=== PATIENT | female | born 1985 | race Caucasian/White ===

== ENCOUNTER 2017-04-18 17:49 | Outpatient (CLI) | payer MEDICAID ==
[2017-04-18 18:44] LABS: ABSOLUTE BASOPHILS # (AUTO) 0.1 10^3/uL (0.0-0.2); ABSOLUTE EOSINOPHILS # (AUTO) 0.2 10^3/uL (0.0-0.6); ABSOLUTE LYMPHOCYTES (AUTO) 2.4 10^3/uL (0.5-4.7); ABSOLUTE MONOCYTES (AUTO) 0.4 10^3/uL (0.1-1.4); ABSOLUTE NEUT (AUTO) 7.9 10^3/uL (1.7-8.2); BASOPHILS % (AUTO) 0.6 % (0-2); EOSINOPHILS % (AUTO) 2.1 % (0-6); HEMATOCRIT 28.9 % (36.0-47.0); HEMOGLOBIN 9.5 g/dL (12.0-15.5); HGB HCT DIFFERENCE -0.4; LYMPHOCYTES % (AUTO) 21.4 % (13-45); MEAN CORPUSCULAR HEMOGLOBIN 26.8 pg (27.0-33.4); MEAN CORPUSCULAR HGB CONC 32.9 g/dL (32.0-36.0); MEAN CORPUSCULAR VOLUME 81 fl (80-97); MONOCYTES % (AUTO) 3.9 % (3-13); RED BLOOD COUNT 3.55 10^6/uL (3.72-5.28); RED CELL DISTRIBUTION WIDTH 15.7 % (11.5-14.0)
[2017-04-18 19:40] LABS: ADD HIVPANEL? NO; HIV (1 AND 2) ANTIBODY NEGATIVE (NEGATIVE)
[2017-04-19 10:50] LABS: RAPID PLASMA REAGIN REACTIVE 1:2 (NONREACTIVE)
[2017-04-21 08:40] LABS: HEPATITIS C VIRUS AB <0.1 s/co ratio (0.0-0.9)
[2017-05-03 09:25] LABS: RPR SEND OUT NONREACTIVE (NONREACTIVE)
== END 2017-04-18 18:49 | disposition home or self-care (01) ==
LOC: LC 17:49
PROVIDERS: ATTEND Obstetrics & Gynecology
PROC: 4A1HXCZ Monitoring of Products of Conception, Cardiac Rate, External Approach (ICD-10-PCS; principal; 2017-04-18)
DX: O09.33 Supervision of pregnancy with insufficient antenatal care, third trimester (principal); Z3A.33 33 weeks gestation of pregnancy
CPT/HCPCS: 36415; 59025; 85025; 86592; 86701; 86762; 86803; 86804; 86850; 86900; 86901; 87340

== ENCOUNTER 2017-04-29 12:29 | Outpatient (CLI) | payer MEDICAID ==
[2017-04-29] MEDS ORDERED: RINGERS SOLUTION,LACTATED 1,000 ML IV PRN (12:46)
[2017-04-29] MEDS ORDERED: RINGERS SOLUTION,LACTATED 1,000 ML IV ONE (12:46)
[2017-04-29 13:14] LABS: APPEARANCE,URINE CLEAR; BILIRUBIN,URINE NEGATIVE (NEGATIVE); GLUCOSE, URINE NEGATIVE (NEGATIVE); KETONES,URINE NEGATIVE (NEGATIVE); LEUKOCYTE ESTERASE,URINE NEGATIVE (NEGATIVE); NITRITE,URINE NEGATIVE (NEGATIVE); PROTEIN,URINE NEGATIVE (NEGATIVE); URINE SPECIFIC GRAVITY 1.001; UROBILINOGEN,URINE NEGATIVE mg/dL (<2.0)
[2017-04-29 13:32] LABS: URINE BARBITURATES SCREEN NEGATIVE; URINE METHADONE SCREEN NEGATIVE; URINE OPIATES LOW NEGATIVE; URINE PHENCYCLIDINE SCREEN NEGATIVE
--- NOTE | 2017-04-29 18:47 | Non Stress Test Report ---
Non Stress Test Datetime Report Generated by CPN: 04/29/2017 18:47 DEMOGRAPHIC EGA NST: 33.3 INDICATION Indication for Study: Ordered by Provider Indication for Study (NST) Other: No care MONITORING Monitor Explained: Monitor Explained; Test Explained; Patient Verbalized Understanding Time on Monitor: 04/18/2017 18:17 Time off Monitor: 04/18/2017 18:43 NST Duration: 26 NST INTERVENTIONS NST Interventions: PO Hydration Physician Notified NST: Dr. Adam BABY A: [id number] BABY A Movement : Present Contraction Frequency : irr FHR Baseline : 125 Accelerations : 15X15 Decelerations : None Variability : Moderate 6-25bpm NST Review: Meets Criteria for Reactive NST NST Review and Verified By : Swati Camp RNC NST Results: Reactive NST REPORT Report Trigger: Send Report
--- NOTE | 2017-04-29 18:52 | RADIOLOGY REPORT (SQ) ---
EXAM DESCRIPTION: U/S OB LIMITED COMPLETED DATE/TIME: 04/29/2017 6:31 pm REASON FOR STUDY: REPEAT OLY, LOW FLUID AT OB OFFICE COMPARISON: None. TECHNIQUE: Limited transabdominal grayscale ultrasound for evaluation of specific requested obstetri efren parameters. LIMITATIONS: None. FINDINGS: CERVICAL LENGTH: 4.1 cm. Closed. OLY: 7.4 cm. FHR: 149 beats per minute. PRESENTATION: Cephalic. PLACENTA: Fundal. OTHER: No other significant findings. IMPRESSION: LIMITED OBSTETRICAL ULTRASOUND WITH MEASURED PARAMETERS DELINEATED ABOVE. Trimester of : Third trimester - 28 weeks to delivery. TECHNICAL DOCUMENTATION: JOB ID: [id number] [employer]- All Rights Reserved
== END 2017-04-29 18:50 | disposition home or self-care (01) ==
LOC: LC 12:29
PROVIDERS: ATTEND Obstetrics & Gynecology
DX: O36.8130 Decreased fetal movements, third trimester, not applicable or unspecified (principal); Z3A.35 35 weeks gestation of pregnancy
CPT/HCPCS: 76815; 80307; 81001

== ENCOUNTER 2017-05-03 16:57 | Outpatient (CLI) | payer MEDICAID ==
--- NOTE | 2017-05-03 18:06 | Non Stress Test Report ---
Non Stress Test Datetime Report Generated by CPN: 05/03/2017 18:06 DEMOGRAPHIC EGA NST: 35.4 INDICATION Indication for Study: Ordered by Provider VITAL SIGNS Temperature - NST: 98.0 Pulse - NST: 65 RESP - NST: 16 NBPSYS NST: 116 NBPDIA NST: 66 MONITORING Monitor Explained: Monitor Explained; Test Explained; Patient Verbalized Understanding Time on Monitor: 05/03/2017 17:08 Time off Monitor: 05/03/2017 17:42 NST Duration: 34 NST INTERVENTIONS NST Interventions: PO Hydration Physician Notified NST: Dr. Cedeno BABY A: [id number] BABY A Movement : Present Contraction Frequency : Irregular irritability FHR Baseline : 135 Accelerations : 15X15 Decelerations : None Variability : Moderate 6-25bpm NST Review: Meets Criteria for Reactive NST NST Review and Verified By : D Bellavance RNC NST Results: Reactive NST COMMENTS NST Comments: D/c order received, kickcount carenotes given to patient, patient had no questions at this time. NST REPORT Report Trigger: Send Report
== END 2017-05-03 17:45 | disposition home or self-care (01) ==
LOC: LC 16:57
PROVIDERS: ATTEND Obstetrics & Gynecology
PROC: 4A1HXCZ Monitoring of Products of Conception, Cardiac Rate, External Approach (ICD-10-PCS; principal; 2017-05-03)
DX: O47.03 False labor before 37 completed weeks of gestation, third trimester (principal); Z3A.35 35 weeks gestation of pregnancy
CPT/HCPCS: 59025

== ENCOUNTER 2017-05-09 14:49 | Inpatient (IN) | payer MEDICAID ==
[2017-05-09] MEDS ORDERED: MISOPROSTOL 0.2 MG TABLET ONE (15:04)
[2017-05-09] MEDS ORDERED: LIDOCAINE 1% INJ-PF (10 MG/ML) 30 ML SDV ONE (15:04)
[2017-05-09] MEDS ORDERED: OXYTOCIN 10 UNIT/ML VIAL ONE (15:04)
[2017-05-09] MEDS ORDERED: OXYTOCIN/NORMAL SALINE 1,000 ML IV PRN (15:34)
[2017-05-09] MEDS ORDERED: DIPH/PERTUSS(ACELL)/TETANUS VAC/PF 0.5 ML SYR (>=10YO) IM PRN (15:34)
[2017-05-09] MEDS ORDERED: BENZOCAINE/MENTHOL AEROSOL SPRAY 56 ML TOP PRN (15:34)
[2017-05-09] MEDS ORDERED: DIBUCAINE 1% OINTMENT 28 GM TP PRN (15:34)
[2017-05-09] MEDS ORDERED: MEASLES,MUMPS&RUBELLA VACC/PF 0.5 ML VIAL SUBCUT PRN (15:34)
[2017-05-09] MEDS ORDERED: ZOLPIDEM TARTRATE 5 MG TABLET PO PRN (15:34)
[2017-05-09] MEDS ORDERED: ACETAMINOPHEN WITH CODEINE #3 TABLET PO PRN (15:34)
[2017-05-09 16:00] LABS: HEMOGLOBIN 11.1 g/dL (12.0-15.5); HGB HCT DIFFERENCE -0.7; MEAN CORPUSCULAR HEMOGLOBIN 27.3 pg (27.0-33.4); MEAN CORPUSCULAR HGB CONC 32.5 g/dL (32.0-36.0); MEAN CORPUSCULAR VOLUME 84 fl (80-97); RED BLOOD COUNT 4.06 10^6/uL (3.72-5.28); RED CELL DISTRIBUTION WIDTH 16.9 % (11.5-14.0); WHITE BLOOD COUNT 12.8 10^3/uL (4.0-10.5)
[2017-05-09 17:05] LABS: APPEARANCE,URINE CLOUDY; BILIRUBIN,URINE NEGATIVE (NEGATIVE); GLUCOSE, URINE NEGATIVE (NEGATIVE); KETONES,URINE NEGATIVE (NEGATIVE); LEUKOCYTE ESTERASE,URINE TRACE (NEGATIVE); NITRITE,URINE NEGATIVE (NEGATIVE); PROTEIN,URINE 100 mg/dL (NEGATIVE); URINE SPECIFIC GRAVITY 1.011; UROBILINOGEN,URINE NEGATIVE mg/dL (<2.0)
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
[2017-05-09 17:31] LABS: URINE BARBITURATES SCREEN NEGATIVE; URINE METHADONE SCREEN NEGATIVE; URINE OPIATES LOW NEGATIVE; URINE PHENCYCLIDINE SCREEN NEGATIVE
[2017-05-09] MEDS: FERROUS SULFATE 325 MG TABLET PO SCH (18:16)
[2017-05-09] MEDS: DOCUSATE SODIUM 100 MG CAPSULE PO SCH (18:16)
[2017-05-09] MEDS: IBUPROFEN 800 MG TABLET PO SCH (21:52)
[2017-05-10] MEDS: IBUPROFEN 800 MG TABLET PO SCH ×3 (05:21→21:37)
[2017-05-10] MEDS: ENOXAPARIN SODIUM INJ 40 MG/0.4 ML DISP.SYRIN SUBCUT SCH ×2 (05:21→18:23)
[2017-05-10 07:33] LABS: HEMATOCRIT 34.2 % (36.0-47.0); HEMOGLOBIN 11.3 g/dL (12.0-15.5); HGB HCT DIFFERENCE -0.3; MEAN CORPUSCULAR HEMOGLOBIN 27.6 pg (27.0-33.4); MEAN CORPUSCULAR HGB CONC 33.1 g/dL (32.0-36.0); MEAN CORPUSCULAR VOLUME 83 fl (80-97); RED CELL DISTRIBUTION WIDTH 16.9 % (11.5-14.0); WHITE BLOOD COUNT 14.2 10^3/uL (4.0-10.5)
[2017-05-10 10:28] LABS: RAPID PLASMA REAGIN REACTIVE 1:4 (NONREACTIVE)
--- NOTE | 2017-05-10 10:44 | Delivery Summary ---
Del Sum A-C Datetime Report Generated by CPN: 05/10/2017 10:44 DELIVERY PERSONNEL DELIVERY PERSONNEL: [phone] DELIVERY PERSONNEL: [phone] DELIVERY PERSONNEL: [phone] Delivery Doctor:: Joan Wei CNM Labor and Delivery Nurse:: Eryn Washington RNelevator attendant Nurse:: MAYCO Joseph Master Hearth Technician/CLINICAL RESEARCH ADMINISTRATOR: Jolie Kothari CLINICAL RESEARCH ADMINISTRATOR II MATERNAL INFORMATION Delivery Anesthesia: None Medications After Delivery: Pitocin 10 Units IM Meds After Delivery Comment: Pitocin 20 Units IM R thigh Estimated Blood Loss (ml): 200 Maternal Complications: None Provider Comments: Pt AROM on on the way up to L _ D, Precip. delivery of viable female , head, shoulders, and body delivered without difficulty. Infant with spontaneous cry and respirations to maternal abdomen. Cord clamed X2, cut free after 2 minute delay. Spontaneous delivery of placenta via dixon mechanism, appears intact, very small to pathology. Vagina and perineum inspected, no lacerations noted, good hemostasis to with external fundal massage, 20 units IM pitocin given. Mother and in stable condition. LABOR SUMMARY EDC: 06/03/2017 00:00 No. Babies in Womb: 1 Attempted: No Labor Anesthesia: None LABOR INFORMATION Reason for Induction: Not Applicable Onset of Labor: 05/09/2017 10:00 Complete Dilatation: 05/09/2017 15:00 Oxytocin: N/A Group B Beta Strep: unknown Steroids Given: None Reason Steroids Not Administered: Not Applicable MEMBRANES Membranes Rupture Method: Spontaneous Rupture of Membranes: 05/09/2017 14:49 Length of Rupture (hr): 0.23 Amniotic Fluid Color: Clear Amniotic Fluid Amount: Scant STAGES OF LABOR Stage 1 hr: 5 Stage 1 min: 0 Stage 2 hr: 0 Stage 2 min: 3 Stage 3 hr: 0 Stage 3 min: 6 Total Time in Labor hr: 5 Total Time in Labor min: 9 VAGINAL DELIVERY Episiotomy: None Laceration Extension: N/A Laceration Type: None Laceration Repair: Not Applicable Laceration Repair Note: n/a Sponge Count Correct: N/A Sharps Count Correct: N/A BABY A INFORMATION Infant Delivery Date/Time: 05/09/2017 15:03 Method of Delivery: Vaginal Born in Route : No : N/A Forceps: N/A Vacuum Extraction: N/A Shoulder Dystocia : No PRESENTATION/POSITION BABY A Presentation: Cephalic Cephalic Presentation: Vertex Vertex Position: Left Occipital Anterior Breech Presentation: N/A PLACENTA INFORMATION BABY A Placenta Delivery Time : 05/09/2017 15:09 Placenta Method of Delivery: Spontaneous Placenta Status: Delivered SCORES BABY A Heart Rate 1 min: >100 bpm Resp Effort 1 min: Good Cry Reflex Irritability 1 min: Cough or Sneeze or Pulls Away Muscle Tone 1 min: Active Motion Color 1 min: Body [place], Extremities Blue Resuscitation Effort 1 min: Tactile Stimulation SCORE 1 MIN: 9 Heart Rate 5 min: >100 bpm Resp Effort 5 min: Good Cry Reflex Irritability 5 min: Cough or Sneeze or Pulls Away Muscle Tone 5 min: Active Motion Color 5 min: Body [place], Extremities Blue Resuscitation Effort 5 min: N/A SCORE 5 MIN: 9 Resuscitation Effort 10 min: N/A INFORMATION BABY A Gestational Age at Delivery: 36.3 Gestational Status: Late - 34- 36.6 Weeks Infant Outcome : Liveborn Infant Condition : Stable Infant Sex: Female IDENTIFICATION BABY A Verification Date/Time: 05/09/2017 15:29 ID Band Number: [id number] Mother's Name Verified: Yes Infant RN Verifying : K Felix RNC/ R Vitaliy RN WEIGHT/LENGTH BABY A Birthweight (gm): 2225 Weight (lb): 4 Weight (oz): 14 Length (in): 18.50 Infant Length (cm): 46.99 CORD INFORMATION BABY A No. Cord Vessels: 3 Nuchal Cord : N/A Cord Blood Taken: Yes-For Eval (Mom's Blood Type - or O+) Suction: Mouth; Nose ASSESSMENT BABY A Complications: None Physical Findings at Delivery: Within Normal Limits Skin to Skin: Yes Supervisor Carpenters/ALS Called : No Infant Care By: D Bellavance RNC Transferred To: Remains with Mother BABY B INFORMATION : N/A SIGNATURES Assignment: Jaquelin cShilling MD Signature: with User ID: Sean : with User ID: Sean
--- NOTE | 2017-05-10 11:41 | PDOC PROGRESS REPORT ---
Subjective-OB Subjective: Post Delivery Day:1 31 year old G5 now P5 L6 s/p ppd1. Ambulating without difficulty. Denies any needs at this time Physical Exam (OB) Vital Signs: Temp Pulse Resp BP Pulse Ox 97.8 F 71 15 110/71 99 05/10/17 07:59 05/10/17 07:59 05/10/17 07:59 05/10/17 07:59 05/10/17 07:59 Intake & Output 05/09/17 05/10/17 05/11/17 06:59 06:59 06:59 Weight 55.3 kg - General General Appearance: Appears well In distress: None - PIH/Pre-Eclampsia Clonus: Negative Headache: Absent Epigastric Pain: No Visual Changes: No - Episiotomy/Laceration Site Condition: N/A - Lochia Lochia Amount: Small 10-25 ml Lochia Color: Rubra/Red - Abdomen Description: Soft, Flat Hernia Present: No Fundal Description: Firm Fundal Height: u/u - u/2 - Respiratory Respiratory Status: No respiratory distress - Extremities Upper extremity: Normal inspection Lower extremities: Normal inspection - Neurological Cognition: Normal Orientation: AAOx4 - Psychological Associated symptoms: Normal affect, Normal mood Objective-Diagnostic Laboratory: 05/10/17 07:05 05/09/17 05/09/17 05/09/17 15:44 15:44 16:20 WBC 12.8 H RBC 4.06 Hgb 11.1 L Hct 34.0 L MCV 84 MCH 27.3 MCHC 32.5 RDW 16.9 H Plt Count 260 Urine Color RED Urine Appearance CLOUDY Urine pH 7.0 Ur Specific [place] 1.011 Urine Protein 100 H Urine Glucose (UA) NEGATIVE Urine Ketones NEGATIVE Urine Blood LARGE H Urine Nitrite NEGATIVE Ur Leukocyte Esterase TRACE H Urine RBC (Auto) >182 Blood Type O NEGATIVE Antibody Screen POSITIVE 05/10/17 05/10/17 07:05 07:05 WBC 14.2 H RBC 4.10 Hgb 11.3 L Hct 34.2 L MCV 83 MCH 27.6 MCHC 33.1 RDW 16.9 H Plt Count 287 Urine Color Urine Appearance Urine pH Ur Specific [place] Urine Protein Urine Glucose (UA) Urine Ketones Urine Blood Urine Nitrite Ur Leukocyte Esterase Urine RBC (Auto) Blood Type O NEGATIVE Antibody Screen Assessment and Plan(PN) - Assessment and Plan (1) Positive RPR test Is this a current diagnosis for this admission?: YesPlan: pending confirmation (2) complicated by Suboxone maintenance, antepartum Qualifiers: Trimester: third trimester Qualified Code(s): O99.323 - Drug use complicating , third trimester; F11.20 - Opioid dependence, uncomplicated Is this a current diagnosis for this admission?: YesPlan: continue stay (3) Delivery normal Is this a current diagnosis for this admission?: YesPlan: continue stay (4) History of deep venous thrombosis or pulmonary embolus Is this a current diagnosis for this admission?: YesPlan: re-started lovenox this am continue therapy 40mg daily as previously discussed - Time Spent with Patient Time with patient: 15-25 minutes Smoking Education Provided: Over 3 minutes Medications reviewed and adjusted accordingly: Yes - Disposition Anticipated Discharge: Home Within: within 24 hours
[2017-05-10] MEDS: PRENATAL VITAMIN W-O CA NO5/FE FUMARATE/FA CAPSULE PO SCH (11:55)
[2017-05-10] MEDS: SENNOSIDES/DOCUSATE 8.6-50 MG 1 EACH TABLET PO SCH (11:55)
[2017-05-10] MEDS: DOCUSATE SODIUM 100 MG CAPSULE PO SCH ×2 (11:56→18:25)
[2017-05-10] MEDS: FERROUS SULFATE 325 MG TABLET PO SCH ×2 (11:56→18:25)
[2017-05-10] MEDS: ACETAMINOPHEN WITH CODEINE #3 TABLET PO PRN ×2 (12:26→19:43)
[2017-05-11] MEDS: ENOXAPARIN SODIUM INJ 40 MG/0.4 ML DISP.SYRIN SUBCUT SCH (05:51)
[2017-05-11] MEDS: IBUPROFEN 800 MG TABLET PO SCH ×2 (05:53→13:55)
[2017-05-11 08:31] VITALS: BP 121/71
[2017-05-11] MEDS: DOCUSATE SODIUM 100 MG CAPSULE PO SCH (09:25)
[2017-05-11] MEDS: SENNOSIDES/DOCUSATE 8.6-50 MG 1 EACH TABLET PO SCH (09:25)
[2017-05-11] MEDS: PRENATAL VITAMIN W-O CA NO5/FE FUMARATE/FA CAPSULE PO SCH (09:25)
[2017-05-11] MEDS: FERROUS SULFATE 325 MG TABLET PO SCH (09:26)
[2017-05-11] MEDS ORDERED: METHYLERGONOVINE MALEATE 0.2 MG TABLET ONE (11:17)
--- NOTE | 2017-05-11 11:20 | PDOC DISCHARGE SUMMARY ---
Final Diagnosis Discharge Date: 05/11/17 - Final Diagnosis (1) Delivery normal Is this a current diagnosis for this admission?: Yes (2) History of deep venous thrombosis or pulmonary embolus Is this a current diagnosis for this admission?: Yes (3) Positive RPR test Is this a current diagnosis for this admission?: Yes (4) complicated by Suboxone maintenance, antepartum Is this a current diagnosis for this admission?: Yes Discharge Data - Discharge Medication Home Medications: Buprenorphine HCl [Subutex 8 mg Sublingual Tablet] 4 mg PO BID 05/09/17 Enoxaparin Sodium [Lovenox Inj 40 Mg/0.4 Ml Disp.Syrin] 40 mg SUBCUT BID No.40/Iron/FA/Dha [ Multi-Dha Softgel] 1 cap PO DAILY 05/09/17 Reason(s) for Admission: Onset of Labor Procedures: NST, Ultrasound Intrapartum Procedure(s): Spontaneous Vaginal Delivery Complication(s): Rho (D)Ig - Diagnosis Test Laboratory: Temp Pulse Resp BP Pulse Ox 97.8 F 69 14 121/71 100 05/11/17 08:00 05/11/17 08:00 05/11/17 08:00 05/11/17 08:00 05/11/17 08:00 05/09/17 05/09/17 05/10/17 15:44 16:20 07:05 RBC 4.06 4.10 Hgb 11.1 L 11.3 L Hct 34.0 L 34.2 L Urine Opiates Screen NEGATIVE - Discharge information/Instructions Discharge Activity: Balance Activity w/Rest Discharge Diet: Regular Disposition: HOME, SELF-CARE Follow up with: [facility] in: 4 - continue lovenox 40 mg sq bid precautions reviewed rhogam given depo prior to discharge
--- NOTE | 2017-05-11 11:22 | PDOC PROGRESS REPORT ---
Subjective-OB Subjective: Post Delivery Day: 31 year old. Denies any needs at this time pt ambulating without difficulty ff@u-1 no clots history of smoking blood clots on lovenox 40 mg sq bid desires depo prior to discharge follow up in 4 weeks Physical Exam (OB) Vital Signs: Temp Pulse Resp BP Pulse Ox 97.8 F 69 14 121/71 100 05/11/17 08:00 05/11/17 08:00 05/11/17 08:00 05/11/17 08:00 05/11/17 08:00 Intake & Output 05/10/17 05/11/17 05/12/17 06:59 06:59 06:59 Intake Total 300 Balance 300 Weight 55.3 kg - PIH/Pre-Eclampsia Clonus: Negative Headache: Absent Epigastric Pain: No Visual Changes: No - Lochia Lochia Amount: Scant < 10 ml Lochia Color: Rubra/Red - Abdomen Description: Tender, Soft Hernia Present: No Fundal Description: Firm, Midline Fundal Height: u/u - u/2 Objective-Diagnostic Laboratory: 05/10/17 07:05 05/10/17 07:05 Blood Type O NEGATIVE Assessment and Plan(PN) - Assessment and Plan (1) Delivery normal Is this a current diagnosis for this admission?: Yes (2) History of deep venous thrombosis or pulmonary embolus Is this a current diagnosis for this admission?: Yes (3) Positive RPR test Is this a current diagnosis for this admission?: Yes (4) complicated by Suboxone maintenance, antepartum Qualifiers: Trimester: third trimester Qualified Code(s): O99.323 - Drug use complicating , third trimester; F11.20 - Opioid dependence, uncomplicated Is this a current diagnosis for this admission?: Yes - Time Spent with Patient Smoking Education Provided: Over 3 minutes Medications reviewed and adjusted accordingly: Yes - Disposition Anticipated Discharge: Home
[2017-05-11] MEDS ORDERED: MEDROXYPROGESTERONE ACET INJ 150 MG/1 ML VIAL IM PRN (12:33)
[2017-05-19 06:38] LABS: RPR SEND OUT NONREACTIVE (NONREACTIVE)
== END 2017-05-11 14:10 | disposition home or self-care (01) | DRG 775 ==
LOC: LC 14:49 → LR 15:05 → 2S 17:07
PROVIDERS: ADMIT Specialist; ATTEND Specialist
PROC: 10E0XZZ Delivery of Products of Conception, External Approach (ICD-10-PCS; principal; 2017-05-09)
PROC: 4A1HXCZ Monitoring of Products of Conception, Cardiac Rate, External Approach (ICD-10-PCS; 2017-05-09)
DX: O36.5930 Maternal care for other known or suspected poor fetal growth, third trimester, not applicable or unspecified (principal); O60.14X0 Preterm labor third trimester with preterm delivery third trimester, not applicable or unspecified; O99.324 Drug use complicating childbirth; F11.20 Opioid dependence, uncomplicated; O62.3 Precipitate labor; O99.334 Smoking (tobacco) complicating childbirth; F17.210 Nicotine dependence, cigarettes, uncomplicated; Z86.711 Personal history of pulmonary embolism; Z86.718 Personal history of other venous thrombosis and embolism; Z3A.36 36 weeks gestation of pregnancy; Z37.0 Single live birth
CPT/HCPCS: 36415; 80307; 81001; 85027; 85461; 86592; 86850; 86870; 86900; 86901; 88307; J1050; J1650; J2590; J2790; J3490